=== PATIENT | female | born 1945 | race Caucasian/White ===

== ENCOUNTER → 2016-08-29 | Outpatient (CLI) | payer OTHER ==
--- NOTE | 2016-08-29 15:39 | MA ---
Screening Digital Mammogram With iCAD Analysis Clinical Indications: Routine screening. Technique: Standard cephalocaudal and mediolateral oblique projections were obtained. This examinatio n was processed by the iCAD computer-aided detection system. Comparison: Baseline study; no previous mammograms have been performed. Breast density: Type B; Scattered fibroglandular densities. Findings: CAD was reviewed. There is a nodular asymmetry in the upper-outer anterior right breast. No suspicious microcalcifications are seen. Impression: Right breast asymmetry requires further evaluation. BI-RADS 0. Recommendation: Spot compression assessment of the right breast with ultrasound suggested if the abno rmality persists on diagnostic evaluation. [facility] will send a result letter to the patient. Negative mammography should not preclude additional workup of a clinically suspicious finding. The patient's information is entered into a reminder system with a target due date for her next mammo gram.
== END ==
LOC: BRMIMAGING 13:49
DX: Z12.31 Encounter for screening mammogram for malignant neoplasm of breast (principal)
CPT/HCPCS: G0202

== ENCOUNTER → 2016-09-12 | Outpatient (CLI) | payer OTHER ==
--- NOTE | 2016-09-12 10:55 | MA ---
Right Unilateral Digital Diagnostic Mammogram History: Asymmetry in the upper-outer right breast. Comparison: Screening mammograms August 29, 2016. Technique: CC and mediolateral oblique spot compression views and a true lateral view were obtained. Findings: There is a persistent focal asymmetry in the upper outer right breast that is slightly less prominent with additional views. No suspicious calcifications are present. Impression: Persistent upper-outer right breast asymmetry. BI-RADS 0: Needs additional imaging evalua tion. Recommendation: Ultrasound, which will be performed later the same day. Please see ultrasound report and recommendations. [facility] will send a result letter to the patient.
--- NOTE | 2016-09-12 11:43 | US ---
Diagnostic Right Breast Ultrasound History: Asymmetry on mammograms. Comparison: Mammograms same day, screening mammograms August 29, 2016. Technique: Limited grayscale and Doppler ultrasound in the region of mammographic abnormality was per formed. Real time sonography was performed by the radiologist. Findings: There is no definite correlate for the mammographic asymmetry. There is a tiny cluster of m icrocysts at 10 o'clock 5 cm from nipple that could correspond to the asymmetry, measuring approximat lois 1.1 x 0.4 x 0.7 cm. At 8 cm from the nipple, there is an island of prominent fibroglandular tissu e they could also correspond to the asymmetry. No suspicious masses or areas of architectural distort ion are identified. Impression: Probable benign asymmetry in the upper-outer right breast, possibly related to a cluster of microcysts or island of fibroglandular tissue. BI-RADS 3: Probably benign findings. Recommendation: Six-month follow-up diagnostic mammogram with ultrasound at the discretion of the int erpreting radiologist. Findings and recommendations were discussed with the patient. [facility] will send a result letter to the patient.
== END ==
LOC: BRMIMAGING 09:38
PROVIDERS: ATTEND Family Medicine
DX: R92.8 Other abnormal and inconclusive findings on diagnostic imaging of breast (principal)
CPT/HCPCS: 76641-PO

== ENCOUNTER → 2017-06-27 | Outpatient (CLI) | payer OTHER | LOC: BRMIMAGING 09:35 | PROVIDERS: ATTEND Family Medicine | DX: R92.8 Other abnormal and inconclusive findings on diagnostic imaging of breast (principal) | CPT/HCPCS: G0206 ==